=== PATIENT | female | born 1950 | race Caucasian/White ===

== ENCOUNTER → 2018-03-26 | Outpatient (CLI) | payer OTHER ==
[~2018-03-26] VITALS: Ht 165.1 cm; Wt 93.2 kg
[~2018-03-26] MED LIST: ALL DAY ALLERGY10 M3 PO; ASPIR 8181 M1 PO; CALCIUM + D3 E1 EACH PO; ELAVIL10 MG PO; ESTRACE42.5 GM VG; FLONASE SENSIM9.9 ML BOTH NARES; PRAVASTATIN SOD10 MG PO; PRILOSEC20 MG PO; PROAIR HFA8.5 GM IH; WELLBUTRIN XL150 MG PO
[2018-03-26 11:28] VITALS: BP 117/68
== END | disposition home or self-care (01) ==
LOC: IVINF 10:51
DX: M81.0 Age-related osteoporosis without current pathological fracture (principal); Z87.19 Personal history of other diseases of the digestive system
CPT/HCPCS: 96365; J3489